=== PATIENT | male | born 1960 | race Caucasian/White ===

== ENCOUNTER 2023-05-24 08:03 | Inpatient (IN) | payer MEDICARE, OTHER, SELFPAY ==
[2023-05-24] VITALS (15 sets, daily range): BP systolic 103–162; BP diastolic 69–123; PULSE 2–139; BMI 27.2
[2023-05-24] MEDS: VENTOLIN NEBULES 7.5 MG INH ×2 (06:06→06:31)
[2023-05-24] MEDS: DUONEB 3 ML INH (06:06)
--- NOTE | 2023-05-24 06:28 | ED.GENMED ---
History of Present Illness
General
Chief Complaint: Breathing Problem
Source: patient and family
Exam Limitations: none
Time Seen by Provider: 05/24/23 06:02
Travel History
Have you had any contact with someone who has COVID-19?: No
Do you have any symptoms of coronavirus? Fever > 100 degrees, chills, cough, shortness of breath, sore throat, loss of taste or smell, muscle aches, or headache?: Yes
Symptoms:: shortness of breath
History of Present Illness
History of Present Illness:
62-year-old male sudden onset of shortness of breath at 330 this morning. No history of same. Some history of COPD but no symptoms like this in the past. No preceding event in the last few days. However his did note he had a brief fever
last week that lasted about a day. Patient given Solu-Medrol 125 via the medics and continuous nebs. Minimal improvement.
Past History
Past History
ED Past Medical History: COPD and HTN
ED Past Surgical History: Orthopedic
Social History
Tobacco: Smoker
Personal:
Living: with family
Employment: Employed
Review of Systems
Review of Systems
All Other Systems: Not applicable
Constitutional: Denies fever
Respiratory: Denies cough or hemoptysis
Phy Exam
Physical Exam
Physical Exam:
GENERAL: Alert. Significant respiratory distress. Hypoxic. Currently receiving continuous nebulizers. Able to speak but moderately breathless
EYE: Orbits normal.
NECK: Supple
ENT: No drooling or stridor
CARDIAC: Tachycardic and regular
LUNGS: Significant respiratory distress. Diffuse expiratory wheezing with decreased breath sounds in the left base. No rales.
ABDOMEN: Soft, without focal tenderness or distention
NEUROLOGICAL: Alert and oriented , grossly non-focal
SKIN: Warm and dry, no rash or lesion, no discoloration, skin intact.
MUSCULOSKELETAL: No edema,no deformity.Good color
PSYCH: Normal and appropriate interaction.
Scores
Heart Failure Risk
Heart Failure Risk Score: Not Applicable
Course
Orders/Labs/Results
Orders:
Orders
05/24/23 06:02
Electrocardiogram (*1) Stat
Reason for Study: Other
Other Reason for Exam: pneumonia
Cardiac Monitoring- Treatment ONCE
EKG- Treatment ONCE
IV Insert/Care/Rem.- Treatment PRN
Albuterol Sulfate [Ventolin Nebules] 7.5 mg INH R NOW STA
Ipratropium/Albuterol Sulfate [Duoneb] 3 ml INH R NOW STA
CR Chest Portable - 1 View Urgent
Comment:
Reason For Exam: sob
Reason Study Needs to be Portable: Unable to Transport
O2 Therapy [RESP] Stat
Nasal Cannula Liter Flow: 4 LPM
Titrate/Wean O2 to maintain O2 sat greater than (%): 92
Pulse Ox/cont/shift [RESP] Stat
Quantity: 1
05/24/23 06:03
Ipratropium/Albuterol Sulfate [Duoneb] 3 ml .ROUTE .STK-MED ONE
05/24/23 06:09
Bipap [RESP] Urgent
Patient to use own unit?: No
Inspiratory Pressure (cm H2O): 12
Expiratory Pressure (cm H2O): 5
05/24/23 06:10
Cefepime HCl [Maxipime] 2,000 mg IV NOW STA
05/24/23 06:25
Basic Metabolic Panel Urgent
Magnesium Urgent
Comment: ADD ON
NT-proBNP Urgent
Troponin I Urgent
05/24/23 06:27
Albuterol Sulfate [Ventolin Nebules] 7.5 mg INH R NOW STA
05/24/23 06:28
Complete Blood Count/With Diff Urgent
Albuterol Sulfate [Ventolin Nebules] 7.5 mg .ROUTE .STK-MED ONE
05/24/23 06:48
Blood Culture Q30M
TATYANA Source: Blood/Venous
Specimen Description:
Blood Culture Q30M
TATYANA Source: Blood/Venous
Specimen Description:
05/24/23 07:16
ABG [Arterial Blood Gas] Urgent
%Oxygen/Room Air: bipap
05/24/23 07:30
COVID-19 Antigen Urgent
Source: Nasal Swab
Influenza A+B Rapid Molecular Urgent
TATYANA Source: Nasal Swab
Specimen Description:
05/24/23 07:45
Admit/Transfer Patient As Directed
Co-Sign Provider:
Level of Care: Inpatient admission
Assign to:: ICU
Physician / Group: Hospitalist
Diagnosis: Hypoxia
Reason for Hospitalization: .
Expected length of stay greater than two midnights?: Yes
ELOS- Estimated Length of Stay in days: 3
I certify the patient meets the requirements for IP care: Yes
05/24/23 07:46
Code Status As Directed
Resuscitation Status: Full Code
05/24/23 07:59
D-Dimer Urgent
Protime/PTT Urgent
Comment: ADD ON
05/24/23 09:16
Heparin 5,000 units SC Q8
05/24/23 09:16
Consult Hydroelectric Plant Electrical Engineer [Hydroelectric Plant Electrical Engineer Consult] Routine
Consulting Provider: Esther Alonso
Was physician already notified: Yes
Reason for consult: Respiratory distress
DX Deep Vein Thrombosis Video Routine
Abnormal Lab Results
05/24/23 05/24/23 05/24/23
06:25 06:28 07:16
WBC 12.2 H 10^3/uL
(4.8-10.8)
Plt Count 431 H 10^3/uL
(130-400)
Abs Immat Gran (auto) 0.1 H 10^3/uL
(0-0.05)
Absolute Neuts (auto) 10.3 H 10^3/uL
(1.4-6.5)
Neutrophils % 84.2 H %
(42.2-75.2)
Lymphocytes % 11.9 L %
(20.5-51.1)
D-Dimer
pH 7.33 L
(7.35-7.45)
pCO2 30 L mmHg
(35-48)
pO2 80 L mmHg
(83-108)
HCO3 15.8 L* mmol/L
(21-28)
Sodium 133 L mmol/L
(135-145)
Carbon Dioxide 19 L mmol/L
(22-30)
Glucose 117 H mg/dl
(70-99)
05/24/23
07:59
WBC
Plt Count
Abs Immat Gran (auto)
Absolute Neuts (auto)
Neutrophils %
Lymphocytes %
D-Dimer 0.66 H ug/mlFEU
(0.00-0.50)
pH
pCO2
pO2
HCO3
Sodium
Carbon Dioxide
Glucose
05/24/23 06:28
05/24/23 06:25
Vital Signs
Initial and Last Documented VS:
Initial Vital Signs
Temp Pulse Resp BP Pulse Ox
98.1 F 120 32 136/99 88
05/24/23 06:09 05/24/23 06:09 05/24/23 06:09 05/24/23 06:09 05/24/23 06:09
Last Documented Vital Signs
Temp Pulse Resp BP Pulse Ox
98.1 F 124 32 136/99 94
05/24/23 06:09 05/24/23 06:19 05/24/23 06:09 05/24/23 06:09 05/24/23 09:28
*Pulse Oximetry
Patient hypoxic: yes
*EKG
Interpreted by ED Provider?: Yes
Interpretation: abnormal
Comparison EKG: changes noted
Heart Rate: 142
Rate: tachycardiac
Rhythm: sinus
[place]: normal axis
Interval: normal interval
QRS Pattern: normal QRS
Ischemia: no ischemia
*Toy Assembly Supervisor Interpretation
Rate: tachycardiac
Interpretation: abnormal
Heart Rate: 130
Rhythm: sinus
*Critical Care Note
Total Time (30-74mins, 75-104mins- exclusive of procedures): 50
Update Note
Update Note:
0630... Patient has been continuously monitor. Sudden onset of shortness of breath 3-3 30 this morning. Patient's did note he had a fever briefly last week. No significant chest pain. Although later he did add a small amount of pain in the
left side of his chest. No hemoptysis. Patient is doing better on the BiPAP although still in respiratory distress. X-ray reviewed multiple times appears to be a left lower lobe pneumonia. No pneumothorax. No obvious heart failure.
0640.... Family updated in the room. Patient continues with moderate tachypnea and tachycardia and moderate respiratory distress but pulse ox is up to up to 93 to 94% and has improved some since initial arrival.
0655... Pulse ox 95%. Still in some distress but seems to be slowly improving. Able to fully speak and alert.
0700... Actually looks much better. Much calmer. Less respiratory distress. Still tachycardic but clearly improved from arrival
0730.... Patient ventilating reasonably well. Is hypoxic relative to FiO2. X-ray consistent with pneumonia as the cause of this although the history is somewhat unusual with sudden onset. Will do a D-dimer as a screening although doubt pulmonary
emboli. Currently would likely have difficulty lying flat for CT
D-dimer essentially top normal. Very low clinical suspicion with other explanation. Do not feel CT scan is warranted at this time
ED Attending Note
-
Portions of this chart may have been created with voice recognition software.� Occasional wrong word or��sound alike� substitutions may have occurred due to the inherent limitations of voice recognition software.
Discharge Plan
Departure
Patient Disposition: Admit
Date of Disposition: 05/24/23
Time of Disposition: 06:54
Presentation/result/management discussed w/ accepting MD/DO: pulmonary
Discharge Problem:
Respiratory distress, Left lower lobe pneumonia, COPD
Interventions
Interventions:
*Risk Screen - Suicide Last Done: 05/24/23 06:09
*General Assessment Last Done: 05/24/23 06:09
*Neglect/Abuse Screening Last Done: 05/24/23 06:09
ED- Fall Risk Assessment Last Done: 05/24/23 06:09
*ED COVID-19 Vaccine History Last Done: 05/24/23 06:09
*Nursing Disposition Last Done: 05/24/23 09:28
ED- Cardiac Assessment Last Done: 05/24/23 06:20
ED- Pulmonary Assessment Last Done: 05/24/23 06:20
Discharge Date and Time
Discharge Date/Time: 05/24/23 09:28
[2023-05-24] MEDS: MAXIPIME 2000 MG IV (06:53)
[2023-05-24 07:03] LABS: % Basophils 0.6 % (0-2); % Eosinophils 0.5 % (0-6); % Immature Granulocytes 0.4 % (0-0.5); % Lymphocytes 11.9 % (20.5-51.1); % Monocytes 2.4 % (1.7-9.3); % Neutrophils 84.2 % (42.2-75.2); Absolute Basophils 0.1 10^3/uL (0-0.2); Absolute Eosinophils 0.1 10^3/uL (0-0.7); Absolute Immature Granulocytes 0.1 10^3/uL (0-0.05); Absolute Lymphocytes 1.5 10^3/uL (1.2-3.4); Absolute Monocytes 0.3 10^3/uL (0.1-0.6); Absolute Neutrophils 10.3 10^3/uL (1.4-6.5); Hematocrit 45.7 % (39.0-52.0); Hemoglobin 15.8 g/dL (13.0-18.0); Mean Corp Hgb Conc. 34.6 g/dL (33.0-37.0); Mean Corpuscular Hgb 29.5 pg (27.0-31.0); Mean Corpuscular Volume 85.3 fL (80.0-94.0); Mean Platelet Volume 8.6 fL (7.4-10.4); Nucleated Red Blood Cells % 0 % (-); Platelet Count 431 10^3/uL (130-400); Red Blood Cell Count 5.36 10^6/uL (4.70-6.10); Red Cell Dist. Width 12.7 % (11.5-14.5); White Blood Cell Count 12.2 10^3/uL (4.8-10.8)
[2023-05-24 07:14] LABS: Blood Urea Nitrogen 16 mg/dl (9-20); Calcium 9.3 mg/dl (8.4-10.2); Carbon Dioxide 19 mmol/L (22-30); Chloride 100 mmol/L (98-107); Estimated Creatinine Clearance 98 ml/min; Glucose 117 mg/dl (70-99); Potassium 4.7 mmol/L (3.5-5.1); Sodium 133 mmol/L (135-145); eGFR > 60.00
[2023-05-24 07:27] LABS: B.E. -8.7 mmol/L; O2 Saturation % 96.2 % (94-98); PCO2 30 mmHg (35-48); PO2 80 mmHg (83-108); pH 7.33 (7.35-7.45)
[2023-05-24 07:30] LABS: HCO3 15.8 mmol/L (21-28)
[2023-05-24 07:33] LABS: NT-proBNP 24.6 pg/ml; Troponin I < 0.012 ng/ml
--- NOTE | 2023-05-24 07:45 | HPS.HSE ---
Family Physician
-
Family Physician: Skip Kaba
Chief Complaint
-
Shortness of breath
History of Present Illness
62 years old male presented with shortness of breath. Patient reports feeling normal the day before. He walked without distress. He uses Trelegy and rescue inhaler at home. No increase in requirement of rescue inhaler in last few days. No
fever. No cough. Patient has baseline shortness of breath upon exertion sometimes related to COPD. He quit smoking 5 years ago. No sick contact. COVID and influenza screen were negative in the emergency room. He had severe respiratory distress
and was put on BiPAP in the emergency room
Medical History
Past Medical History
Past Medical History: Reports Other (Anxiety/depression, hypertension, COPD)
Past Surgical History: Reports Other (No recent major surgery)
Social History
Tobacco: Former Smoker
Alcohol: Occasional
Drug: None
Personal:
Living: With Family
Employment: Retired
Family History
Family History: Not pertinent
Allergies / Home Medications
Allergies reflects when Allergies were last updated in [facility].
Home Medications with original date entered in [facility]
Allergy/Medication List:
Allergies
Allergy/AdvReac Type Severity Reaction Status Date / Time
beeswax Allergy Anaphylaxis Verified 05/24/23 06:08
bees Allergy Anaphylaxis Uncoded 05/24/23 06:08
seafood Allergy Anaphylaxis Uncoded 05/24/23 06:08
Home Medications
duloxetine 60 mg capsule,delayed release 60 mg PO HS 08/31/13
nebivolol 5 mg tablet (Bystolic) 5 mg PO DAILY 08/31/13
fluticasone fur. 100 mcg-umeclid 62.5 mcg-vilant 25 mcg inhalat.powder (Trelegy Ellipta) 1 inh inhalation DAILY 05/24/23
Review of Systems
-
History Source: Patient
A 12 point ROS was completed and negative except as noted: Yes
Constitutional: Denies Fever
EENT: Denies Sore Throat
Respiratory: Reports Trouble Breathing
Cardiac: Denies Chest Pain
Abdomen/GI: Denies Abdominal Pain
: Denies Dysuria or Difficulty Voiding
Musculoskeletal: Denies Joint Pain or Joint Swelling
Skin: Denies Rash
Neurological: Denies Numbness
Endocrine: Denies Temp Intolerance
Psych: Denies Panic Disorder
Physical Exam
Vital Signs
Vital Signs
Temp Pulse Resp BP Pulse Ox
98.1 F 124 32 136/99 93
05/24/23 06:09 05/24/23 06:19 05/24/23 06:09 05/24/23 06:09 05/24/23 06:20
Physical Exam
General: Well Developed and Respiratory Distress
HEENT: Anicteric and Moist mucous membranes
Respiratory: Rhonchi (Bilaterally and very limited air entry)
Cardiac: S1/S2, Regular Rhythm and Tachycardia
GI: Soft and Non Tender
Rectal: No Maroon Stools
Genito-urinary: No Bloody Urine
Musculoskeletal: No Clubbing, No Cyanosis and No Edema
Skin: Warm; No Jaundice
Neuro: AO x 3 and Nonfocal/grossly intact; No Slurred Speech or Facial Droop
Psych: Intact Judgment/Insight
Laboratory Results
-
05/24/23 06:28
05/24/23 06:25
Laboratory Results
pH 7.33 (7.35-7.45) L 05/24/23 07:16
pCO2 30 mmHg (35-48) L 05/24/23 07:16
pO2 80 mmHg (83-108) L 05/24/23 07:16
HCO3 15.8 mmol/L (21-28) L* 05/24/23 07:16
Troponin I < 0.012 ng/ml 05/24/23 06:25
Impression/Plan
-
62-year-old male who presented with sudden onset of respiratory distress
# Acute hypoxic respiratory failure requiring BiPAP treatment in the emergency room
Patient presented with respiratory distress, tachypnea, tachycardia and using accessory muscle
Started on nebulizer treatment around 2 hours and was given 125 mg of methylprednisone
Admit the patient to the hospital
Continue with BiPAP and wean down to nasal oxygen if tolerates
Will do CAT scan of the chest to rule out pulmonary embolism
Order chest x-ray
No history of flulike symptoms. Negative COVID and influenza screen. No sick contact
Nebulizer treatment
Appreciate pulmonary input
# Sinus tachycardia. No chest pain. No acute ischemic changes. Likely reactive to ongoing respiratory distress and nebulizer treatment.
Monitor on telemetry.
# Primary hypertension. Will verify medication from home.
Will add as needed hydralazine
#Hyponatremia, mild
#History of depression/anxiety. Will continue home medication
#DVT prophylaxis
Total time spent to see the patient, examine the patient on the floor, review data and lab results, discuss treatment plan with patient, nursing staff and ER doctor around 75 minutes
[2023-05-24 08:00] LABS: COVID-19 Antigen Negative (Negative)
--- NOTE | 2023-05-24 08:38 | CON.INTV ---
Consultation
Consultation Request
Date/Time Consultation Requested: 05/24/23
Date/Time Consultation Performed: 05/24/23
Performing Provider: Gavin
Reason for Consultation: ICU
Medical History
-
History of Present Illness:
Patient is a 62-year-old male with previous history of COPD, former smoker presenting to ED with acute onset of shortness of breath. He notes that he had awakened through the night with gasping, could not catch his breath. Denies any inciting
triggers, never had exacerbations in the past. He does not follow with pulmonary for COPD. He has been taking Trelegy at home that was written by his PCP. On arrival to ER, he was notably in respiratory distress with hypoxemia, placed on BiPAP
with improvement. Chest x-ray demonstrating new left-sided infiltrate at the base.
Former smoker, 1 pack/day for 47 years, quit 5 years ago.
Past Medical History
Past Medical History: Other (See list below)
Past Surgical History: None
Social History
Tobacco: Former Smoker
Alcohol: None
Drug: None
Family History
Family History: Reviewed & Not Pertinent
Allergies / Home Medications
Allergies
Allergy/AdvReac Type Severity Reaction Status Date / Time
beeswax Allergy Anaphylaxis Verified 05/24/23 06:08
bees Allergy Anaphylaxis Uncoded 05/24/23 06:08
seafood Allergy Anaphylaxis Uncoded 05/24/23 06:08
Home Medications
Medication Instructions Recorded Confirmed Last Taken Type
duloxetine 60 mg capsule,delayed 60 mg PO HS 08/31/13 03/05/16 08/30/13 History
release
nebivolol 5 mg tablet (Bystolic) 5 mg PO DAILY 08/31/13 03/05/16 08/31/13 History
Review of Systems
-
History Source: Patient
All other systems: Negative unless noted
Vitals / Labs / Diagnostic Testing
Vital Signs
Temp Pulse Resp BP Pulse Ox
98.1 F 124 32 136/99 93
05/24/23 06:09 05/24/23 06:19 05/24/23 06:09 05/24/23 06:09 05/24/23 06:20
Lab Data
05/24/23 06:28
05/24/23 06:25
Laboratory Results
05/24/23
07:16
pH 7.33 L
pCO2 30 L
pO2 80 L
HCO3 15.8 L*
O2 Delivery Level
Microbiology
05/24/23 07:30 Nasal Swab Influenza Types A & B (LATHA) - Final
Negative for Influenza A & B, NAAT
Negative results must be combined with clinical observations
and patient history.
Nucleic Acid Amplification test (NAAT)performed on the
[employer] platform.
Diagnostic Testing:
Physical Exam
-
HEENT: Normocephalic, Anicteric and Moist Mucous Membranes
Cardiovascular: S1/S2 and Regular Rhythm
Respiratory: Non-Labored Respirations and Other (Poor air movement, decreased breath sounds bilaterally)
GI: Soft, Non Distended and Non Tender
Neurology: Awake, Alert, Oriented, AO x 3, No Motor Deficits, Tremors and Other (Anxious appearing)
Skin: Warm and Dry
General: Respiratory Distress (mild, dyspneic with conversation)
Assessment
-
Patient is a 62-year-old male with previous history of COPD, former smoker presenting to ED with acute onset of shortness of breath. On arrival to ER, he was notably in respiratory distress with hypoxemia, placed on BiPAP with improvement.
Chest x-ray demonstrating new left-sided infiltrate at the base. Admitted to ICU for respiratory distress.
Acute exacerbation of COPD
Wheezing
Respiratory distress requiring BiPAP and admission to ICU
New left-sided infiltrate possibly pneumonia
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
HTN
GERD
Moderate COPD
Former smoker, 1 pack/day for 47 years, quit 5 years ago.
Anxiety/depression
Plan
No current signs of metabolic encephalopathy or MS changes/following commands
Anxious appearing but able to follow commands/answer
Psychiatric history noted above including anxiety/depression
Denies pain at this time.
Pain/sedation: PRN
RASS goals: 0
Hemodynamically stable, not requiring pressors.
Cardiac history reviewed--HTN
No prior ECHO for review, will obtain new study
proBNP on admission was negative
Resume home meds as tolerated
Oxygen needs: Currently on 15 L nasal cannula, wean as able
ABG 7.33/30/80/15/96%
BIPAP added, resume PRN/nightly
Prior history of lung disease: COPD, on Trelegy at home
Prior PFTS showing moderate obstruction, he does not follow with pulmonary
Former smoker, will need OP FU with yearly screening
Supplemental O2 as indicated to maintain sats > 89%
IV steroids
Resume home inhalers
CXR/CT reviewed indicating new LLL infiltrate, agree with empiric abx, sputum culture if possible
Advance diet as tolerated
Lightning Rod Installer recommendations
Aspiration precautions, HOB > 30 degrees
Speech therapy eval can be considered if at elevated risk
GI prophylaxis if indicated for mechanical ventilation >48 hours, prior history of GERD, stress ulcer formation in the critically ill
Creat at baseline, no history of renal disease
Void trials
Follow urine output, critical I/Os
Replete electrolytes as needed
Possible new L sided PNA
Started on empiric antibiotics
Cultures sent/pending
Blood
Sputum
Follow fever trend, WBC count
CBC stable, no signs of bleeding or coagulopathy.
DVT prophylaxis as assessed based on risk, including mechanical SCDs
Can transfuse if indicated for Hb <7, plt < 10
INR WNL
No prior h/o diabetes or thyroid disease
Monitor accuchecks PRN/SS coverage if needed
We will follow
Diagnostic Data
Chest X-Ray: 05/24/23- L sided interstitial process noted, new
03/05/16-Impression: No acute disease of the chest.
CT Scan:
Echo:
PFT's: 07/23/20- Pre-bronchodilator FEV1 was 1.88L or 52% predicted.� The FVC was 3.82L or 80% predicted.� Ratio 0.49. There is no significant response to bronchodilator.�
Impression: Moderate obstructive lung disease.
05/23/16- FVC is 4.52 or 93%, FEV1 is 2.48 or 67%, Ratio of 55. There is a 10% improvement in the FVC following bronchodilator. TLC is 7.78 or 109%, RV is 3.32 or 141%, RV/TLC ratio is 43
DLCO is 16.84 or 57%
Impression: Moderate Obstructive Lung Disease with borderline bronchodilator response, evidence of hyperinflation and moderate gas exchange defect.
Reports and relevant images were personally reviewed.
-----
Critical Care time 65 mins -- The patient is admitted for acute critical illness for the treatment of vital organ failure and/or prevention of further life-threatening conditions. Total care includes time spent in review of history, physical exam,
medications, hemodynamic/ventilator parameters, laboratory data, imaging and discussion with house staff, pharmacy, respiratory therapy, director risk, and nursing.
[2023-05-24 09:14] LABS: D-Dimer 0.66 ug/mlFEU (0.00-0.50)
[2023-05-24 09:49] LABS: INR 0.98; PT 12.8 Sec (11.4-14.6)
[2023-05-24 09:50] LABS: APTT 26.9 Sec (23.4-35.0)
[2023-05-24 09:54] LABS: Magnesium 1.8 mg/dl (1.6-2.3)
--- NOTE | 2023-05-24 10:17 | PTCARENOTE ---
pt admit from ed. pt aaox3. states some discomfort in right side from breath hard. on 15l mid flow. bilat base absent upper diminished. sinus tach seen on monitor. sacral alex area red rash noted. cream applied. reviewed pt condition and plan
of care.
[2023-05-24] MEDS: HEPARIN 5000 UNITS SC ×3 (11:33→23:30)
[2023-05-24] MEDS: ROCEPHIN 2000 MG IV ×2 (12:10→23:29)
[2023-05-24] MEDS: ZITHROMAX INFUSION 250 IV (12:11)
[2023-05-24] MEDS: DECADRON 4 MG IV ×3 (12:11→23:30)
[2023-05-24] MEDS: STERILE WATER FOR INJECTION 20 ML IV ×2 (12:11→23:29)
[2023-05-24 13:30] LABS: Lactic Acid 3.6 mmol/L (0.7-2.0)
[2023-05-24] MEDS: ATROVENT NEBULES 0.5 MG INH ×2 (13:31→18:19)
[2023-05-24] MEDS: XOPENEX 1.25 MG INHALANT SOLUTION INH ×2 (13:31→18:19)
[2023-05-24] MEDS: NORVASC 10 MG PO (13:38)
[2023-05-24] MEDS: LOPRESSOR 25 MG PO (14:36)
[2023-05-24 18:58] LABS: Lactic Acid 3.7 mmol/L (0.7-2.0)
--- NOTE | 2023-05-24 20:00 | PTCARENOTE ---
Rec'd pt resting in bed, denies pain, denies sob , SR, bp stable. + pulses, skin warm/dry, O2 decr to 4 liters nc, lungs decr in bases, fine scat exp wheezes, + thomason, sat 96,+ bowel sounds, no bm, abd soft, voids w/o prob
[2023-05-24 20:12] LABS: ALT (SGPT) 40 U/L (0-50); AST (SGOT) 28 U/L (17-59); Albumin 4.4 g/dl (3.5-5.0); Alkaline Phosphatase 88 U/L (38-126); Total Bilirubin 0.4 mg/dl (0.2-1.3)
[2023-05-24] MEDS: CYMBALTA DELAYED RELEASE 60 MG PO (21:50)
--- NOTE | 2023-05-24 22:00 | PTCARENOTE ---
decr to 2 liters md, sat 95
[2023-05-24 22:08] LABS: Lactic Acid 1.9 mmol/L (0.7-2.0)
--- NOTE | 2023-05-24 22:36 | PTCARENOTE ---
pt declined wearing bipap for the night, comf on 2 liters nc
[2023-05-25] VITALS (18 sets, daily range): BP systolic 93–177; BP diastolic 70–105; BMI 25.4
--- NOTE | 2023-05-25 | PTCARENOTE ---
sys reviewed, lungs decr in bases
[2023-05-25 04:03] LABS: Hematocrit 36.7 % (39.0-52.0); Mean Corp Hgb Conc. 35.4 g/dL (33.0-37.0); Mean Corpuscular Hgb 29.2 pg (27.0-31.0); Mean Corpuscular Volume 82.5 fL (80.0-94.0); Mean Platelet Volume 8.8 fL (7.4-10.4); Platelet Count 363 10^3/uL (130-400); Red Blood Cell Count 4.45 10^6/uL (4.70-6.10); White Blood Cell Count 21.5 10^3/uL (4.8-10.8)
--- NOTE | 2023-05-25 04:19 | PTCARENOTE ---
sys reviewed, lungs unch
[2023-05-25 04:38] LABS: ALT (SGPT) 32 U/L (0-50); AST (SGOT) 22 U/L (17-59); Albumin 3.8 g/dl (3.5-5.0); Alkaline Phosphatase 70 U/L (38-126); Blood Urea Nitrogen 16 mg/dl (9-20); Calcium 9.2 mg/dl (8.4-10.2); Carbon Dioxide 22 mmol/L (22-30); Chloride 105 mmol/L (98-107); Estimated Creatinine Clearance > 125 ml/min; Glucose 147 mg/dl (70-99); Potassium 4.5 mmol/L (3.5-5.1); Sodium 131 mmol/L (135-145); Total Bilirubin 0.4 mg/dl (0.2-1.3); Total Protein 6.3 g/dl (6.3-8.2); eGFR > 60.00
[2023-05-25] MEDS: DECADRON 4 MG IV ×3 (06:05→19:36)
--- NOTE | 2023-05-25 06:13 | PTCARENOTE ---
amb to bathroom to void & back to bed, exp wheezing when back in bed- resp notified -will give a rx
[2023-05-25] MEDS: ATROVENT NEBULES 0.5 MG INH ×3 (06:21→20:08)
[2023-05-25] MEDS: XOPENEX 1.25 MG INHALANT SOLUTION INH ×3 (06:22→20:08)
[2023-05-25] MEDS: NON-FORMULARY ITEM 1 UNIT INH (07:33)
--- NOTE | 2023-05-25 07:45 | PTCARENOTE ---
Assumed care of patient. Pt rec'd A&Ox3. Pleasant. Mildly anxious. Denies any pain or SOB. S1 S2 reg w/ NSR on monitor. +PP. No edema. On
R/A...sats 93-94%. Lungs diminished in bases....moist NPC noted. Encouraged coughing and deep breathing. Abdomen round and firm...+BS. Voids in urinal. Skin WNL. 20P RAC capped. 20P LAC capped. VS documented. Call yates within reach. Will
continue to monitor.
[2023-05-25] MEDS: PROTONIX 40 MG PO (08:04)
[2023-05-25] MEDS: ABILIFY 2.5 MG PO (08:04)
[2023-05-25] MEDS: NORVASC 10 MG PO (08:04)
[2023-05-25] MEDS: HEPARIN 5000 UNITS SC ×3 (08:05→23:16)
--- NOTE | 2023-05-25 09:54 | W.PN.PUL3 ---
Today's Communication / Plan
-
Continue IV corticosteroids without change
Continue nebulizers without change
Discontinue BiPAP
Continue inhalers
Continue antibiotics, azithromycin changed to oral.
Follow sputum culture
Transferred to [facility]
Assessment
-
Patient is a 62-year-old male with previous history of COPD, former smoker presenting to ED with acute onset of shortness of breath.� On arrival to ER, he was notably in respiratory distress with hypoxemia, placed on BiPAP with improvement.�
Chest x-ray demonstrating new left-sided infiltrate at the base.� Admitted to ICU for respiratory distress.
-
Acute hypoxemic respiratory failure requiring -Noninvasive mechanical ventilation.
Acute exacerbation of COPD
Wheezing
Respiratory distress requiring BiPAP and admission to ICU
New left-sided infiltrate possibly pneumonia
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
HTN
GERD
Moderate COPD
Former smoker, 1 pack/day for 47 years, quit 5 years ago.
Anxiety/depression
Plan
Clinically improving.
Did not require BiPAP overnight
Still bronchospastic but with better air movement.
Able to speak in full sentences.
Hemodynamically stable, not requiring pressors.
Cardiac history reviewed--HTN,
proBNP on admission was negative, does not suggest any volume overload.
Resume home meds as tolerated, on amlodipine.
Oxygen supplementation has been weaned off.
ABG 7.33/30/80/15/96%
BiPAP did not require overnight. Will discontinue.
-
Still bronchospastic on exam:
Prior history of lung disease: COPD, on Trelegy at home
Prior PFTS showing moderate obstruction, he does not follow with pulmonary
Former smoker, will need OP FU with yearly screening
Supplemental O2 as indicated to maintain sats > 89%
IV steroids, continue without change. Still bronchospastic.
Resume home inhalers
Leukocytosis without fevers.
Community-acquired pneumonia suspected.
CXR/CT reviewed indicating new LLL infiltrate-continue ceftriaxone/azithromycin.
Wait for sputum culture and adjust antibiotics when able.
Transition to oral azithromycin.
-
Advance diet as tolerated
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
Aspiration precautions, HOB > 30 degrees
-
Creat at baseline, no history of renal disease
-
Monitor hyperglycemia on high-dose of IV steroids.
Monitor accuchecks PRN/SS coverage if needed
Patient will be transferred to [facility]. Pulmonary will continue to follow.
Patient will need outpatient pulmonary follow-up after discharge. Will need radiographic follow-up in the outpatient setting.

Diagnostic Data
Chest X-Ray: 05/24/23- L sided interstitial process noted, new
03/05/16-Impression: No acute disease of the chest.
CT Scan:
Echo:
PFT's: 07/23/20- Pre-bronchodilator FEV1 was 1.88L or 52% predicted.� The FVC was 3.82L or 80% predicted.� Ratio 0.49. There is no significant response to bronchodilator.�
Impression: Moderate obstructive lung disease.
05/23/16- FVC is 4.52 or 93%, FEV1 is 2.48 or 67%, Ratio of 55. There is a 10% improvement in the FVC following bronchodilator. TLC is 7.78 or 109%, RV is 3.32 or 141%, RV/TLC ratio is 43
DLCO is 16.84 or 57%
Impression: Moderate Obstructive Lung Disease with borderline bronchodilator response, evidence of hyperinflation and moderate gas exchange defect.
Reports and relevant images were personally reviewed.
Subjective Data
-
Date of Service:
Date of Service: May 25, 2023
Chief Complaint: Pulmonary Follow Up (Acute exacerbation of COPD/acute respiratory failure requiring noninvasive mechanical ventilation.)
Subjective:
Patient states that he feels better.
No shortness of breath at rest but some distress with activity.
Wheezing has improved.
Starting to cough some phlegm.
Did not require BiPAP overnight.
Review of Systems
General: Fever (n)
Cardiopulmonary: Dyspnea (none at rest), Dyspnea on Exertion, Cough, Sputum Production, Wheezing and Chest Pain (n)
GI: Abdominal Pain (n) and Nausea (n)
Neuro: Headache (n)
Objective Data
Data Reviewed
Vital Signs / I&O / Oxygen:
Vital Signs
Temp Pulse Resp BP Pulse Ox
97.5 F 104 23 127/93 93
05/25/23 07:31 05/25/23 08:04 05/25/23 08:00 05/25/23 08:04 05/25/23 08:00
Intake and Output
05/24/23 05/25/23 05/26/23
06:59 06:59 06:59
Intake Total 100 / 100
Balance 100 / 100
SaO2 93
Nasal Cannula flow liters per 2
minute
Physical Exam
General: Respiratory Distress (none) and Comfortable
HEENT: Normocephalic
Cardiovascular: S1-S2 and Regular Rhythm
Respiratory: Wheeze (Expiratory bilaterally) and Non-Labored Respirations
GI: Soft and Non Distended
Neurology: Awake and Alert
Skin: Warm
Labs/Micro/Reports
Lab Data
05/25/23 03:31
05/25/23 03:31
Laboratory Results
05/24/23
07:59
PT 12.8
INR 0.98
APTT 26.9
Microbiology
05/24/23 13:41 Sputum Respiratory Culture - Preliminary
05/24/23 13:41 Sputum Gram Stain - Preliminary
05/24/23 06:48 Blood/Venous Blood Culture - Preliminary
No Growth in 24 hours- Final report to follow
05/24/23 06:48 Blood/Venous Blood Culture - Preliminary
No Growth in 24 hours- Final report to follow
05/24/23 13:05 Urine Legionella Urinary Antigen - Final
Negative for Legionella pneumophila Serogroup 1 antigen.
A negative result does not rule out the possiblity of
Legionella infection due to other serogroups or species of
Legionella. Clinical correlation is recommended.
05/24/23 13:05 Urine Streptococcus pneumoniae Antigen (M - Final
Negative for Streptococcus pneumoniae antigen.
A negative result does not exclude infection with
Streptococcus pneumoniae. Clinical correlation is
recommended.
05/24/23 07:30 Nasal Swab Influenza Types A & B (LATHA) - Final
Negative for Influenza A & B, NAAT
Negative results must be combined with clinical observations
and patient history.
Nucleic Acid Amplification test (NAAT)performed on the
[employer] platform.
[2023-05-25] MEDS: ZITHROMAX 500 MG PO (10:18)
--- NOTE | 2023-05-25 10:30 | PTCARENOTE ---
Pt's cardiac catheterization technologist removed. Tx to M/S when bed available. OOB -> chair by self. Pt able to wash self in bathroom w/o issue. Call yates within reach. at bedside.
[2023-05-25] MEDS: STERILE WATER FOR INJECTION 20 ML IV (11:12)
[2023-05-25] MEDS: ROCEPHIN 2000 MG IV (11:12)
--- NOTE | 2023-05-25 15:21 | W.PN.HOSP.TC ---
Today's Communication/Plan
-
Wean iv steroids to every 8h
Continue empiric antibiotics
Continue DuoNebs, Xopenex
Follow-up sputum cultures
tx to med/surg
Assessment / Plan
Assessment / Plan
Physical Exam
General: Well Developed and Respiratory Distress
HEENT: Anicteric and Moist mucous membranes
Respiratory: Rhonchi (Bilaterally, mild wheezing at the bases)
Cardiac: S1/S2, Regular Rhythm and Tachycardia
GI: Soft and Non Tender
Rectal: No Maroon Stools
Genito-urinary: No Bloody Urine
Musculoskeletal: No Clubbing, No Cyanosis and No Edema
Skin: Warm; No Jaundice
Neuro: AO x 3 and Nonfocal/grossly intact; No Slurred Speech or Facial Droop
Psych: Intact Judgment/Insight
62-year-old male who presented with sudden onset of respiratory distress
# Acute hypoxic respiratory failure
#COPD exacerbation
#? New left-sided infiltrate, possibly pneumonia
-Continue DuoNebs
� Continue IV steroids for today, anticipate transition to p.o. prednisone very soon. Wean to every 8h
�Follow sputum cultures
� Continue empiric antibiotics
-Weaned off BiPAP
-Appreciate pulmonary input
#Leukocytosis
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
Monitor fever curve, white count
#Hyponatremia
� Most likely secondary to SIADH
Continue monitor
� Free water restriction
# Sinus tachycardia.� No chest pain.� No acute ischemic changes.� Likely reactive to ongoing respiratory distress and nebulizer treatment.
Monitor on telemetry.
# Primary hypertension
�Continue antihypertensives
#History of depression/anxiety.� Will continue home medication
#DVT prophylaxis
Anticipated Discharge: 24 - 48 hours
Subjective/Interval History
-
Date of Service: May 25, 2023
Respiratory status greatly improved, mild wheezing lower bases
Objective Data
-
Labs:
Laboratory Results
05/25/23
03:31
WBC 21.5 H
Hgb 13.0
Hct 36.7 L
Plt Count 363
Sodium 131 L
Potassium 4.5
Chloride 105
Carbon Dioxide 22
BUN 16
Creatinine 0.5 L
Glucose 147 H
Calcium 9.2
Total Bilirubin 0.4
AST 22
ALT 32
Alkaline Phosphatase 70
Vital Signs:
Vital Signs
Temp Pulse Resp BP Pulse Ox
97.5 F 111 28 165/99 95
05/25/23 07:31 05/25/23 10:00 05/25/23 10:00 05/25/23 10:00 05/25/23 10:00
I&O
05/24/23 05/25/23 05/26/23
06:59 06:59 06:59
Intake Total 100 / 100
Balance 100 / 100
Review of Systems
-
History Source: Patient
All other systems: Not reviewed unless documented
Data Reviewed
-
CT Scan: Image personally visualized and interpreted and Report Reviewed by me
Labs: Labs Reviewed by me
--- NOTE | 2023-05-25 16:13 | CM ---
Patient with Dx Acute hypoxic respiratory failure, COPD exacerbation, possible pneumonia. Room air. Receiving IV Abx, IV steroids.
Spoke with patient's SO Karla;
the patient resides with Karla in a one story house.
The patient has been independent in ADLs and ambulation.
He is active and retired. Karla says Koko did a 6 mile walk yesterday.
The patient has no DME, prior VN or SNF.
PCP - Skip Kaba
Pharmacy - [facility]
No CM d/c needs identified.
Plan home.
--- NOTE | 2023-05-25 19:56 | PTCARENOTE ---
Rec'd pt amb ad moragn in room, denies pain, + pulses, skin warm/dry, RA, sat 94, prod cough for tiwari/brown sputum, few insp wheezes, decr in bases, Left base crackles, + bowel sounds, riley diet, voids in bathroom
[2023-05-25] MEDS: ZESTRIL 20 MG PO (20:55)
--- NOTE | 2023-05-25 20:57 | PTCARENOTE ---
zestril 20mg po given per order
[2023-05-25] MEDS: CYMBALTA DELAYED RELEASE 60 MG PO (21:50)
--- NOTE | 2023-05-25 23:27 | PTCARENOTE ---
resting comf, no c/o
[2023-05-26 03:08] VITALS: BP 146/90
[2023-05-26] MEDS: DECADRON 4 MG IV ×2 (03:11→11:05)
[2023-05-26 03:28] VITALS: BP 146/90
[2023-05-26 03:29] VITALS: BMI 26.8
[2023-05-26 03:38] LABS: Hematocrit 36.3 % (39.0-52.0); Hemoglobin 12.8 g/dL (13.0-18.0); Mean Corp Hgb Conc. 35.3 g/dL (33.0-37.0); Mean Corpuscular Hgb 29.4 pg (27.0-31.0); Mean Corpuscular Volume 83.3 fL (80.0-94.0); Mean Platelet Volume 8.8 fL (7.4-10.4); Platelet Count 366 10^3/uL (130-400); Red Blood Cell Count 4.36 10^6/uL (4.70-6.10); Red Cell Dist. Width 13.1 % (11.5-14.5); White Blood Cell Count 17.1 10^3/uL (4.8-10.8)
[2023-05-26 04:01] LABS: ALT (SGPT) 31 U/L (0-50); AST (SGOT) 22 U/L (17-59); Albumin 3.8 g/dl (3.5-5.0); Alkaline Phosphatase 75 U/L (38-126); Blood Urea Nitrogen 22 mg/dl (9-20); Calcium 9.3 mg/dl (8.4-10.2); Carbon Dioxide 22 mmol/L (22-30); Chloride 101 mmol/L (98-107); Estimated Creatinine Clearance > 125 ml/min; Glucose 167 mg/dl (70-99); Potassium 4.6 mmol/L (3.5-5.1); Sodium 132 mmol/L (135-145); Total Bilirubin 0.5 mg/dl (0.2-1.3); Total Protein 6.4 g/dl (6.3-8.2); eGFR > 60.00
[2023-05-26] MEDS: NON-FORMULARY ITEM 1 UNIT INH (07:08)
[2023-05-26] MEDS: ATROVENT NEBULES 0.5 MG INH (07:08)
[2023-05-26] MEDS: XOPENEX 1.25 MG INHALANT SOLUTION INH (07:08)
[2023-05-26 07:30] VITALS: BP 128/108
[2023-05-26 07:31] VITALS: BP 126/93
[2023-05-26 07:48] VITALS: BP 126/93
[2023-05-26 08:21] VITALS: BP 132/91
[2023-05-26] MEDS: ABILIFY 2.5 MG PO (08:25)
[2023-05-26] MEDS: ZITHROMAX 500 MG PO (08:25)
[2023-05-26] MEDS: NORVASC 10 MG PO (08:25)
[2023-05-26] MEDS: PROTONIX 40 MG PO (08:25)
[2023-05-26] MEDS: ZESTRIL 20 MG PO (08:26)
[2023-05-26] MEDS: HEPARIN 5000 UNITS SC (08:26)
--- NOTE | 2023-05-26 08:32 | W.PN.INTV ---
Today's Communication / Plan
Recommendations
Transition to oral antibiotics
Transition to prednisone 40 mg and decrease by 10 mg every 48 hours to off upon discharge.
Continue outpatient inhaler
Albuterol HFA as needed
Outpatient pulmonary follow-up, okay for discharge today from my perspective.
Sign off
Assessment
-
Patient is a 62-year-old male with previous history of COPD, former smoker presenting to ED with acute onset of shortness of breath. On arrival to ER, he was notably in respiratory distress with hypoxemia, placed on BiPAP with improvement.
Chest x-ray demonstrating new left-sided infiltrate at the base. Admitted to ICU for respiratory distress.
Acute exacerbation of COPD
Wheezing
Respiratory distress requiring BiPAP and admission to ICU
New left-sided infiltrate possibly pneumonia
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
HTN
GERD
Moderate COPD
Former smoker, 1 pack/day for 47 years, quit 5 years ago.
Anxiety/depression
Plan
Clinically improved.
Not bronchospastic on exam 05/26/2023
Ambulatory around the room without symptoms
Patient would like to go home.
From the pulmonary perspective okay to discharge.
Currently on room air.
Able to speak in full sentences
Restart home regimen- Trelegy
Prior PFTS showing moderate obstruction, he does not follow with pulmonary
Former smoker, will need OP FU with yearly cancer screening
Transition to prednisone 40 mg and decrease by 10 mg every 48 hours to off.
Albuterol HFA as needed.
-
CXR/CT reviewed indicating new LLL infiltrate-he will need radiographic follow-up in the outpatient setting.
Discussed with patient and at the bedside by Dr. Powell 05/26/2023.
-
Possible new L sided PNA
All cultures negative, afebrile.
Leukocytosis possibly from steroids as well.
Okay to transition to oral antibiotics and complete total of 7 days of antibiotics.
-
No additional recommendations from the pulmonary perspective.
Okay to discharge from my perspective.
Outpatient pulmonary follow-up in about 2 to 3 weeks. Information will be left in the chart.

Diagnostic Data
Chest X-Ray: 05/24/23- L sided interstitial process noted, new
03/05/16-Impression: No acute disease of the chest.
CT Scan:
Echo:
PFT's: 07/23/20- Pre-bronchodilator FEV1 was 1.88L or 52% predicted.� The FVC was 3.82L or 80% predicted.� Ratio 0.49. There is no significant response to bronchodilator.�
Impression: Moderate obstructive lung disease.
05/23/16- FVC is 4.52 or 93%, FEV1 is 2.48 or 67%, Ratio of 55. There is a 10% improvement in the FVC following bronchodilator. TLC is 7.78 or 109%, RV is 3.32 or 141%, RV/TLC ratio is 43
DLCO is 16.84 or 57%
Impression: Moderate Obstructive Lung Disease with borderline bronchodilator response, evidence of hyperinflation and moderate gas exchange defect.
Reports and relevant images were personally reviewed.
-----
Subjective Dataa
Subjective Data
Date of Service:
Date of Service: May 26, 2023
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
Subjective:
Patient feels better.
Ambulatory around the room without significant shortness of breath
Coughing and wheezing significantly improved.
Would like to go home if possible
Review of Systems
General: Fever (n)
Cardiopulmonary: Dyspnea (n)
GI: Abdominal Pain (n), Nausea (n) and Vomiting (n)
Objective Data
Data Reviewed
Vital Signs / I&O / Oxygen:
Vital Signs
Temp Pulse Resp BP Pulse Ox
97.7 F 110 18 132/91 94
05/26/23 07:48 05/26/23 08:26 05/26/23 07:48 05/26/23 08:26 05/26/23 07:48
Intake and Output
05/25/23 05/26/23 05/27/23
06:59 06:59 06:59
Intake Total 100 / 100 1420 / 1420
Balance 100 / 100 1420 / 1420
SaO2 94
Nasal Cannula flow liters per 2
minute
Physical Exam
General: Respiratory Distress (n) and Comfortable
HEENT: Normocephalic
Cardiovascular: S1-S2 and Regular Rhythm
Respiratory: Clear and Non-Labored Respirations
GI: Soft
Neurology: Awake, Alert and No Motor Deficits
Labs/Micro/Reports
Lab Data
05/26/23 03:09
05/26/23 03:09
Microbiology
05/24/23 06:48 Blood/Venous Blood Culture - Preliminary
No Growth in 48 hours- Final report to follow
05/24/23 06:48 Blood/Venous Blood Culture - Preliminary
No Growth in 48 hours- Final report to follow
05/24/23 13:41 Sputum Respiratory Culture - Preliminary
05/24/23 13:41 Sputum Gram Stain - Preliminary
05/24/23 13:05 Urine Legionella Urinary Antigen - Final
Negative for Legionella pneumophila Serogroup 1 antigen.
A negative result does not rule out the possiblity of
Legionella infection due to other serogroups or species of
Legionella. Clinical correlation is recommended.
05/24/23 13:05 Urine Streptococcus pneumoniae Antigen (M - Final
Negative for Streptococcus pneumoniae antigen.
A negative result does not exclude infection with
Streptococcus pneumoniae. Clinical correlation is
recommended.
05/24/23 07:30 Nasal Swab Influenza Types A & B (LATHA) - Final
Negative for Influenza A & B, NAAT
Negative results must be combined with clinical observations
and patient history.
Nucleic Acid Amplification test (NAAT)performed on the
[employer] platform.
--- NOTE | 2023-05-26 08:52 | PTCARENOTE ---
Addendum entered by Maria Fernanda Urias RN 05/26/23 08:53:
patient refused full skin assessment. fully dressed in street clothe, wearing shoes
Original Note:
report received, assessments per work list. patient ambulating in room, denies complaints. inspiratory wheezes noted. denies dyspnea. room air pulse oximeter 95. family at bedside. patient anticipating discharge today
[2023-05-26] MEDS: STERILE WATER FOR INJECTION 10 ML IV (11:05)
[2023-05-26] MEDS: ROCEPHIN 1000 MG IV (11:05)
--- NOTE | 2023-05-26 11:53 | W.PN.HOSP.TC ---
Addendum entered and electronically signed by Chaparro aHro MD 05/28/23 16:42:
Severe Sepsis
-2/2 to pneumonia
Addendum entered and electronically signed by Chaparro Haro MD 05/26/23 16:35:
[id number]
Original Note:
Today's Communication/Plan
-
Steroid taper
Antibiotic course
Albuterol as needed
Regular inhalers�Trelegy Ellipta
CBC, BMP outpatient
f/u pcp, pulm outpatient
Assessment / Plan
Assessment / Plan
Physical Exam
General: Well Developed and Respiratory Distress
HEENT: Anicteric and Moist mucous membranes
Respiratory: Rhonchi (Bilaterally, mild wheezing at the bases)
Cardiac: S1/S2, Regular Rhythm and Tachycardia
GI: Soft and Non Tender
Rectal: No Maroon Stools
Genito-urinary: No Bloody Urine
Musculoskeletal: No Clubbing, No Cyanosis and No Edema
Skin: Warm; No Jaundice
Neuro: AO x 3 and Nonfocal/grossly intact; No Slurred Speech or Facial Droop
Psych: Intact Judgment/Insight
62-year-old male who presented with sudden onset of respiratory distress
# Acute hypoxic respiratory failure
#COPD exacerbation
#? New left-sided infiltrate, possibly pneumonia
-Continue DuoNebs
� Switch from IV steroids to PO pred - 40mg pred and drop by 10mg every 2 days.
� Continue empiric antibiotics - switch to cefdinir and azithro total 5 days abx
-rx wth albuterol prn; reg home inhalers
-Weaned off BiPAP
-Appreciate pulmonary input - f/u outpatient
#Leukocytosis
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
Monitor fever curve, white count
-trending down -f/u outpatient cbc
#Hyponatremia
� Most likely secondary to SIADH
Continue monitor
� Free water restriction
-f/u outpatient bmp
# Sinus tachycardia.� No chest pain.� No acute ischemic changes.� Likely reactive to ongoing respiratory distress and nebulizer treatment.
Monitor on telemetry.
# Primary hypertension
�Continue antihypertensives
#History of depression/anxiety.� Will continue home medication
#DVT prophylaxis
More than 30 minutes spent in discharge including
Final examination of the patient
Summarizing hospital stay
Instructions for continuing care to all relevant caregivers
Preparation of discharge records, prescriptions, and referral forms
Total time spent (35 in minutes):
Anticipated Discharge: Today
Subjective/Interval History
-
Date of Service: May 26, 2023
No respiratory distress, sitting in chair resting comfortbaly. no acute distress. No wheezing on exam
Objective Data
-
Labs:
Laboratory Results
05/26/23
03:09
WBC 17.1 H
Hgb 12.8 L
Hct 36.3 L
Plt Count 366
Sodium 132 L
Potassium 4.6
Chloride 101
Carbon Dioxide 22
BUN 22 H
Creatinine 0.6 L
Glucose 167 H
Calcium 9.3
Total Bilirubin 0.5
AST 22
ALT 31
Alkaline Phosphatase 75
Vital Signs:
Vital Signs
Temp Pulse Resp BP Pulse Ox
97.7 F 110 24 132/91 94
05/26/23 07:48 05/26/23 08:26 05/26/23 08:20 05/26/23 08:26 05/26/23 08:23
I&O
05/25/23 05/26/23 05/27/23
06:59 06:59 06:59
Intake Total 100 / 100 1420 / 1420 480 / 480
Balance 100 / 100 1420 / 1420 480 / 480
Review of Systems
-
History Source: Patient
All other systems: Not reviewed unless documented
Data Reviewed
-
CT Scan: Image personally visualized and interpreted and Report Reviewed by me
Labs: Labs Reviewed by me
--- NOTE | 2023-05-26 12:00 | W.DS.TRANS ---
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
-
Discharge Instructions:
Discharge Diagnosis/Procedures Acute exacerbation of COPD
New left-sided infiltrate possibly pneumonia
Diet Low Fat,Low Cholesterol
Activity As tolerated
Blood Work cbc, bmp in 5 days with pcp
Instructions:
Stand-Alone Forms:
Changes to Home Medications: Yes
Discharge Medications:
DC Medications w/original date entered in [email or web address]
duloxetine 60 mg capsule,delayed release 60 mg PO HS Depression 08/31/13
amlodipine 10 mg-benazepril 20 mg capsule 1 cap PO DAILY Blood Pressure 05/24/23
aripiprazole 2 mg tablet 2 mg PO DAILY Mental Health/Anxiety 05/24/23
celecoxib 200 mg capsule 200 mg PO DAILY Pain 05/24/23
fluticasone fur. 100 mcg-umeclid 62.5 mcg-vilant 25 mcg inhalat.powder (Trelegy Ellipta) 1 inh inhalation DAILY Lung/Breathing Issues 05/24/23
albuterol sulfate 90 mcg/actuation aerosol inhaler 2 puff inhalation Q6H PRN shortness of breath or wheezing #8.5 grams 05/26/23
azithromycin 500 mg tablet 500 mg PO DAILY 3 days #3 tabs 05/26/23
cefdinir 300 mg capsule 300 mg PO Q12H 4 days #8 caps 05/26/23
prednisone 10 mg tablet See Rx Instructions .Route .COMPLEX #30 tabs 05/26/23
Home Medication Changes
albuterol sulfate 90 mcg/actuation aerosol inhaler 2 puff inhalation Q6H PRN shortness of breath or wheezing #8.5 grams 05/26/23
azithromycin 500 mg tablet 500 mg PO DAILY 3 days #3 tabs 05/26/23
cefdinir 300 mg capsule 300 mg PO Q12H 4 days #8 caps 05/26/23
prednisone 10 mg tablet See Rx Instructions .Route .COMPLEX #30 tabs 05/26/23
Pending Results: No
--- NOTE | 2023-05-26 14:28 | PN.CDI ---
CDI
- -
CDI:
Physician Documentation Request
Admit Date: 05/24/23 08:03
Dear Doctor Tahir,
Patient presented to ED with sudden onset of shortness of breath. Diagnosis on admission include Acute hypoxic respiratory failure. Pulmonary note states acute exacerbation of COPD and new left sided infiltrate possibly pneumonia.
WBC 05/23 12.2 rising to 21.5 on 05/24
05/23 patient was afebrile
05/23 HR 133-84
05/23 presenting respiratory rate 32
Lactic acid 3.6
Patient was placed on Zithromax, Ceftriaxone, and cefepime
Please clarify which of the following most accurately describes the status of the patient's infection:
Sepsis
- Systemic manifestations of infection, with 2 or more SIRS criteria which include:
- Fever >100.4 degrees F or hypothermia < 96.8 degrees F
- Leukocytosis - WBC > 12,000 or leukopenia - WBC < 4,000 or > 10% bands
- Tachycardia > 90 beats per minute
- Tachypnea - RR > 20 breaths per minute or PaCO2 , 32mmHg
Source: Merck Manual 2013.
Severe Sepsis
- Sepsis with associated acute organ dysfunction, such as renal or respiratory failure
- Documentation should indicate the association between the sepsis and the organ dysfunction
Localized Infection Only, Without Systemic Illness
- indicate the site/source, such as UTI, pneumonia etc.
Other
Use of terms such as suspected, likely, concern for, or probable (associated with a specific diagnosis that is being evaluated, monitored, or treated as if it exists) are acceptable and can be coded in the inpatient setting, when documented at the
time of discharge.
Thank you,
Diane Ramos RN, BSN
CDI Specialist
tiger text
Please use your independent medical judgment in providing your response.
== END 2023-05-26 12:15 | disposition home or self-care (01) | DRG 871 ==
LOC: ICU 08:03
PROVIDERS: ADMITTING PHYSICIAN Internal Medicine; ATTENDING PHYSICIAN Internal Medicine; CONSULT PHYSICIAN Internal Medicine; EMERGENCY PHYSICIAN Emergency Medicine; FAMILY PHYSICIAN Family Medicine
DX: A41.9 Sepsis, unspecified organism (principal); J18.9 Pneumonia, unspecified organism; J96.01 Acute respiratory failure with hypoxia; J44.1 Chronic obstructive pulmonary disease with (acute) exacerbation; J44.0 Chronic obstructive pulmonary disease with (acute) lower respiratory infection; E22.2 Syndrome of inappropriate secretion of antidiuretic hormone; R65.20 Severe sepsis without septic shock; F17.200 Nicotine dependence, unspecified, uncomplicated; Z11.52 Encounter for screening for COVID-19; I10 Essential (primary) hypertension; F41.9 Anxiety disorder, unspecified; F32.A Depression, unspecified; K21.9 Gastro-esophageal reflux disease without esophagitis
CPT/HCPCS: 71045; 71275; 80053; 82805; 83605; 83735; 83880; 84484; 85025; 85027; 85379; 85610; 85730; 87040; 87070; 87077; 87147; 87205; 87449; 87502; 87811; 87899; 93005; 94640; 96374; 99291; Q9967

== ENCOUNTER → 2023-08-27 07:51 | Outpatient (REF) | payer MEDICARE, OTHER, SELFPAY | LOC: RAD 07:51 | PROVIDERS: ATTENDING PHYSICIAN Family Medicine | DX: I70.213 Atherosclerosis of native arteries of extremities with intermittent claudication, bilateral legs (principal) | CPT/HCPCS: 93922; 93925 ==

== ENCOUNTER → 2023-09-16 08:36 | Outpatient (REF) | payer MEDICARE, OTHER, SELFPAY | LOC: RAD 08:36 | PROVIDERS: ATTENDING PHYSICIAN Surgery Vascular Surgery; FAMILY PHYSICIAN Family Medicine | DX: Z13.6 Encounter for screening for cardiovascular disorders (principal); Z82.49 Family history of ischemic heart disease and other diseases of the circulatory system | CPT/HCPCS: 76770 ==

== ENCOUNTER → 2024-03-18 07:40 | Outpatient (REF) | payer MEDICARE, OTHER, SELFPAY | LOC: RAD 07:40 | PROVIDERS: ATTENDING PHYSICIAN Surgery Vascular Surgery; FAMILY PHYSICIAN Family Medicine | DX: I73.9 Peripheral vascular disease, unspecified (principal) | CPT/HCPCS: 93922; 93925 ==

== ENCOUNTER → 2025-01-25 08:13 | Outpatient (REF) | payer MEDICARE, OTHER, SELFPAY | LOC: HWRAD 08:13 | PROVIDERS: ATTENDING PHYSICIAN Family Medicine | DX: Z87.891 Personal history of nicotine dependence (principal) | CPT/HCPCS: 71271 ==